=== PATIENT | female | born 1950 | race American Indian/Alaskan Native ===

== ENCOUNTER 2018-12-30 09:57 | Outpatient (CLI) | payer OTHER ==
--- NOTE | 2018-12-30 11:43 | Mammography Report ---
BILATERAL DIGITAL DIAGNOSTIC MAMMOGRAM WITH CAD -- 12/30/2018 RIGHT LIMITED BREAST ULTRASOUND INDICATION: Breast cancer survivor status post left partial mastectomy, radiation and chemotherapy. P alpable lumps in the right breast. UNSPECIFIED LUMP IN THE RIGHT BREAST, UNSPECIFIED QUADRANT TECHNIQUE: Digital bilateral mammographic imaging was performed. Magnification views were obtained. Limited ultrasound was performed. This examination was interpreted with the benefit of Computer-Aided Detection (CAD) analysis. COMPARISON: 12/08/2015. No recent imaging is available for comparison. However, she has had a more re cent mammogram at [facility]. FINDINGS: Breast Density: The breasts are heterogeneously dense, which may obscure small masses. MAMMOGRAPHIC FINDINGS: An irregular mass in the right upper outer quadrant with highly suspicious ana cifications measures 2.8 x 2.2 x 2.6 cm. It correlates with a palpable lump. A pacemaker obscures a p ortion of the upper right breast. There is suggestion of at least one enlarged lymph node in the righ t axilla. There is no evidence of dominant mass, suspicious calcifications or architectural distortio n in the left breast. ULTRASOUND FINDINGS: Targeted ultrasound evaluation was performed of the area of interest. Ultrasou nd of the upper outer right breast demonstrated an irregular solid heterogeneous hypoechoic mass at 1 0:00 8 cm from the nipple. It contains calcifications and measures 1.9 x 2.0 x 1.6 cm. The mass corre lates with the mammographic mass. Ultrasound of the right axilla demonstrated a grossly abnormal lymp h node with no central fat measuring 2.8 x 2.2 x 1.7 cm. IMPRESSION: 1. A highly suspicious 2 cm right breast mass at 10:00 8 cm from the nipple and a highly suspicious 2 .8 cm right axillary lymph node. Recommend ultrasound-guided needle biopsies of the mass and the lymp h node. 2. Negative left breast. I discussed the findings and the recommendation for needle biopsies with the patient at the time of t he exam. Follow up recommendation: Biopsy BI-RADS Category 5: Highly Suggestive of Malignancy. A "normal" or negative report should not discourage follow up or biopsy of a clinically significant f inding. A written summary of these findings will be mailed to the patient. The patient will be entered into a mammography reporting system which will generate a reminder letter for the patient's next appointmen t at the appropriate interval. According to the [employer], yearly mammograms are recommended starting at age 40 and continuing as long as a woman is in good health. Breast MRI is recommended for women with an selina roximately 20-25% or greater lifetime risk of breast cancer, including women with a strong family his tory of breast or ovarian cancer and women who have been treated for Hodgkin's disease. Signer Name: Constantine Pugh MD Signed: 12/30/2018 11:38 AM Workstation Name: [id number]
== END 2018-12-30 09:58 | disposition home or self-care (01) ==
LOC: MAMMO 09:57
PROVIDERS: ATTEND Family Medicine
DX: N63.11 Unspecified lump in the right breast, upper outer quadrant (principal); Z85.3 Personal history of malignant neoplasm of breast
CPT/HCPCS: 77066

== ENCOUNTER 2019-01-06 08:50 | Outpatient (CLI) | payer OTHER | END 2019-01-06 08:51 | disposition home or self-care (01) | LOC: LABHHL 08:50 | PROVIDERS: ATTEND Surgery | DX: N63.10 Unspecified lump in the right breast, unspecified quadrant (principal); D36.0 Benign neoplasm of lymph nodes | CPT/HCPCS: 88305; 88341; 88342 ==

== ENCOUNTER 2019-02-02 10:01 | Outpatient (CLI) | payer OTHER, MEDICARE ==
--- NOTE | 2019-02-02 11:31 | Ultrasound Report ---
BILATERAL BREAST ULTRASOUND HISTORY: Newly diagnosed right breast cancer and history of left breast cancer status post partial ma stectomy. These studies are being done to assess the extent of disease since she has a pacemaker and cannot have an MRI. COMPARISON: 12/30/2018 bilateral mammogram and limited right breast ultrasound. FINDINGS: Ultrasound examination of the right breast including all 4 quadrants and the retroareolar area was pe rformed. A palpable irregular heterogeneous solid hypoechoic mass at 10:00 7 cm from the nipple corre lates with the newly diagnosed cancer. It measures 2.5 x 1.8 x 1.7 cm. No other mass or suspicious sh adowing of the right breast. However, 2 highly suspicious right axillary lymph nodes have no central fat and measures 3.3 x 1.9 x 3.7 cm and 1.3 x 0.9 x 1.7 cm. Ultrasound examination of the left breast including all 4 quadrants and the retroareolar area was per formed. No mass or suspicious shadowing of the left breast. Benign shadowing at a lumpectomy scar at 10:00 7 cm from the nipple. Ultrasound of the left axilla demonstrated no suspicious lymph nodes. IMPRESSION: 1. A 2.5 x 1.8 x 1.7 cm known right breast cancer and no additional suspicious lesion of either breas t. 2. 2 highly suspicious right axillary lymph nodes. 3. No suspicious left axillary lymph nodes. BIRADS 6: Known biopsy proven malignancy. Signer Name: Constantine Pugh MD Signed: 02/02/2019 11:26 AM Workstation Name: [id number]
== END 2019-02-02 10:02 | disposition home or self-care (01) ==
LOC: SPVWC 10:01
PROVIDERS: ATTEND Surgery
DX: C50.411 Malignant neoplasm of upper-outer quadrant of right female breast (principal)

== ENCOUNTER 2019-02-10 05:50 | Day surgery (SDC) | payer OTHER, MEDICARE ==
--- NOTE | 2019-02-09 13:00 | Short Stay Summary ---
Short Stay Documentation Date of service: 02/10/19 - History H&P: obtained from office - Allergies and Medications Current Medications: Allergies No Known Allergies Allergy (Verified 02/09/19 10:12) Home Medications Medication Instructions Recorded Confirmed Last Taken Type Aspirin [Aspirin BABY CHEW TAB] 80 mg PO DAILY 02/09/19 02/09/19 Unknown History Bumetanide 1 mg PO DAILY 02/09/19 02/09/19 Unknown History ISOSORBIDE MONOnitrate [Monoket] 20 mg PO BID 02/09/19 02/09/19 Unknown History Ivabradine HCl [Corlanor] 5 mg PO BID 02/09/19 02/09/19 Unknown History Mag Oxide/D3/Turmeric Rt Xt 1 each PO DAILY 02/09/19 02/09/19 Unknown History [Magnesium-Vit D3-Turmeric Tab] Pantoprazole [Protonix] 40 mg PO QDAY 02/09/19 02/09/19 Unknown History Primidone [Mysoline] 50 mg PO BID 02/09/19 02/09/19 Unknown History Vedolizumab (Nf) [Entyvio (Nf)] 300 mg IV Q8W 02/09/19 02/09/19 Unknown History allopurinoL [Zyloprim] 100 mg PO QDAY 02/09/19 02/09/19 Unknown History calcitrioL [Rocaltrol] 0.25 mcg PO DAILY 02/09/19 02/09/19 Unknown History carvediloL [Coreg] 25 mg PO BID 02/09/19 02/09/19 Unknown History hydrALAZINE [Apresoline] 25 mg PO TID 02/09/19 02/09/19 Unknown History Active Medications Acetaminophen (Tylenol) 1,000 mg PO PREOP MELANIE Stop: 02/10/19 23:00 Celecoxib (Celebrex) 200 mg PO PREOP NR Stop: 02/10/19 23:00 Gabapentin (Gabapentin) 300 mg PO PREOP NR Stop: 02/10/19 23:01 Cefazolin Sodium (Ancef/Sterile Water 2 Gm/20 Ml) 2 gm in 20 mls @ 80 mls/hr IV PREOP NR; Protocol Stop: 02/10/19 23:01 Lactated Ringer's (Lactated Ringers) 1,000 mls @ 100 mls/hr IV DIRECT MELANIE Midazolam HCl (Versed) 2 mg IV PREOP NR Stop: 02/10/19 16:00 - Physical exam General appearance: no acute distress Integumentary: no rash, no growths, no abnormal pigmentation HEENT: Atraumatic Lungs: Normal air movement - Brief post op/procedure progress note Date of procedure: 02/10/19 (dictation:[id number]) Pre-op diagnosis: right breast cancer Post-op diagnosis: same Procedure: Us guided port placement IVF 300cc EBL min Anesthesia: MAC Findings: possible clot in left IJ Surgeon: DULCE BROWN Estimated blood loss: minimal Pathology: none Condition: stable - Disposition Condition at discharge: Stable Disposition: DC-01 TO HOME OR SELFCARE Short Stay Discharge Plan Activity: no restrictions Diet: regular Wound: open to air, keep clean and dry Special Instructions: no heavy lifting Additional Instructions: Post Operative Instructions Activity: no heavy lifting for next 1 week. May shower tomorrow. Pat dry the wound or wounds. Keep incision sites clean and dry After surgery, start with a light diet. Consider having a liquid diet first. If you do well, you can advance to a regular diet as you feel comfortable. Apply an ice pack to the wound or wounds for 10-20 minutes at a time. Do this at least 4-5 times a day. You can do it more if he would like. Alternate the use of ibuprofen and Tylenol for the first 2 days. I want you to take these on a scheduled basis. Take 600 mg of ibuprofen every 6 hours. Take 500 mg of Tylenol every 6 hours. You should alternate these 2 medicines. In other words, beginning with the ibuprofen. After 3 hours, take the Tylenol. Keep alternating the 2 drugs every 3 hours. Do this on a scheduled basis for the first 2 days. After that, you can take them as needed. It is very important that you use the prescription pain medicine only for very severe pain. Do not take the prescription medicine before you try using the ibuprofen and Tylenol. We will call you in a couple of days to see how youre doing. If you have any questions or concerns, always feel free to call the clinic at any time. Follow up with: DANE ACEVES MD [Primary Care Provider] - 7 Days Forms: Outpatient Surgery DC Inst. Prescriptions: HYDROcodone/APAP 5-325 [Dixon 5-325 mg TAB] 1 each PO Q6HR PRN #6 tablet PRN Reason: Pain , Severe (7-10)
[~2019-02-10 05:50] MED LIST: LACTATED RINGERS 1,000 ML IV SCH
[2019-02-10] MEDS ORDERED: ceFAZolin/Water 2 GM/20 ML 2 GM/20 ML SYRINGE IV NR (06:00)
[2019-02-10] MEDS ORDERED: MIDAZOLAM 2 MG/2 ML INJ IV NR (06:00)
[2019-02-10] MEDS ORDERED: GABAPENTIN 300 MG CAP PO NR (06:00)
[2019-02-10] MEDS ORDERED: CELECOXIB 200 MG CAP PO NR (06:00)
[2019-02-10] MEDS ORDERED: ACETAMINOPHEN 500 MG TAB PO SCH (06:00)
[2019-02-10] MEDS ORDERED: BACTERIOSTATIC SODIUM CHLORIDE 0.9% 30 ML VIAL INFILTRATI ONE (06:31)
[2019-02-10] MEDS ORDERED: fentaNYL 100 MCG/2 ML INJ IV PRN (07:11)
[2019-02-10] MEDS ORDERED: ONDANSETRON 4 MG/2 ML INJ IV PRN (07:11)
[2019-02-10] MEDS ORDERED: carvediloL 25 MG TAB PO NR (07:12)
--- NOTE | 2019-02-10 07:13 | Anesthesia Day of Surgery ---
Anesthesia Day of Surgery - Day of Surgery Patient Examined: Yes Patient H&P Reviewed: Yes Patient is NPO: Yes Beta Blockers: Yes
[2019-02-10] MEDS ORDERED: LIDOCAINE (1%) 10 MG/1 ML VIAL 20 ML MDV ONE (07:15)
[2019-02-10] MEDS ORDERED: HEPARIN 10,000 UNITS/10 ML VIAL ONE (07:15)
[2019-02-10] MEDS ORDERED: BUPIVACAINE-EPINEPHRINE/PF 0.5%-1:200,000 (30 ML) VIAL INFILTRATI ONE ×2 (07:15→08:12)
[2019-02-10] MEDS ORDERED: SODIUM CHLORIDE 0.9% 250ML 250 ML ONE (07:15)
--- NOTE | 2019-02-10 07:17 | Anesthesia Consultation ---
Anesthesia Consult and Med Hx Date of service: 02/10/19 - Airway Anesthetic Teeth Evaluation: Good ROM Head & Neck: Adequate Mental/Hyoid Distance: Adequate Mallampati Class: Class II Intubation Access Assessment: Good - Pre-Operative Health Status ASA Pre-Surgery Classification: ASA3 Proposed Anesthetic Plan: General - Pulmonary Hx Smoking: No Hx Sleep Apnea: No (RASHEL PRE SCREEN LOW RISK) - Cardiovascular System Hx Hypertension: Yes (CHF EF 35-40% per pt. 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
[2019-02-10] MEDS ORDERED: LIDOCAINE MPF (2%) 20 MG/1 ML VIAL 5 ML ONE (07:40)
[2019-02-10] MEDS ORDERED: fentaNYL 100 MCG/2 ML INJ ONE (07:41)
[2019-02-10] MEDS ORDERED: PROPOFOL 200 MG/20 ML VIAL IV ONE ×2 (07:41→08:12)
[2019-02-10] MEDS ORDERED: KETAMINE/STERILE WATER 50 MG/ML SYRINGE ONE (08:01)
[2019-02-10] MEDS ORDERED: HEPARIN 10,000 UNITS/10 ML VIAL IV ONE (08:11)
[2019-02-10] MEDS ORDERED: SODIUM CHLORIDE 0.9% 250 ML IVPB IV ONE (08:12)
[2019-02-10] MEDS ORDERED: LIDOCAINE (1%) 10 MG/1 ML VIAL 20 ML MDV INFILTRATI ONE (08:13)
--- NOTE | 2019-02-10 09:01 | Fluoroscopy Report ---
Fluoroscopy Central venous device placement HISTORY: Uydjvp-x-[id number] insertion. Right breast cancer FINDINGS: 22 seconds of fluoroscopy time was provided by radiology during left subclavian Infuse-a-Po rt insertion. 2 AP images of the chest are presented. The distal tip of the Dslzqt-r-Ghpo terminates in the superior right atrium. Single lead pacemaker terminates in the right ventricle. Borderline to mild cardiomegaly is evident. The lungs are clear. No pneumothorax is appreciated. Multiple surgical clips are noted in the left axilla suggesting lymph node dissection. Signer Name: Real Chavez Jr, MD Signed: 02/10/2019 8:57 AM Workstation Name: [id number]
--- NOTE | 2019-02-10 09:31 | Post Anesthesia Evaluation ---
- Post Anesthesia Evaluation Patient Participated: Yes Airway Patent: Yes Stable Respiratory Function: Yes Nausea/Vomiting: No Temp > 96.8F: Yes Pain Manageable: Yes Adequeate Hydration: Yes Anesthesia Complications: No Block Receding Appropriately: Not Applicable Patient on Ventilator: No
[2019-02-10 09:38] VITALS: BP 131/66
--- NOTE | 2019-02-10 10:19 | Operative Report ---
PREOPERATIVE DIAGNOSIS: Right breast cancer. POSTOPERATIVE DIAGNOSIS: Right breast cancer. PROCEDURES: 1. Insertion of tunneled centrally inserted central venous access device with subcutaneous port. 2. Ultrasound guidance for vascular access. ATTENDING PHYSICIAN: Wally Wick MD ANESTHESIA: Local MAC. ESTIMATED BLOOD LOSS: Minimal. FLUIDS: 300 mL. FINDINGS: Possible nonobstructing clot in the left internal jugular vein. Normal chest x-ray post-procedure. IMPLANTS: Smart port. COMPLICATIONS: None. DISPOSITION: Stable, transferred to Recovery Room. INDICATIONS: This is a 68-year-old female who presents for port placement after recent diagnosis of right breast cancer. The patient is assessed to be an adequate candidate. Procedure, risks, benefits were explained to the patient. Risks include but were not limited to infection, bleeding, pain, injury to surrounding structures, possible need for further procedures in the future. The patient understood and consented. OPERATIVE NOTE: The patient was brought to the operating room and placed on the table in supine position. Ultrasound examination was done. I was concerned there could be a nonobstructing clot in the left internal jugular vein. The left subclavian vein seemed to be patent and reasonable target. The right side, I did not want to approach as she had her AICD on that side. Sterile prep and drape was performed. Sedation was established. The patient was placed in Trendelenburg position. SCDs were in place. Antibiotics had been given. Time-out was called. I began by again re-identifying the left subclavian vein and its margins. Lidocaine 1% with epinephrine and 0.5% Marcaine were used to anesthetize the planned insertion site. Under ultrasound guidance, I watched the tissue above the vein fill up with local anesthetic. A subsequent small incision was made. Introducer needle was inserted. Under ultrasound guidance, I inserted the needle into the subclavian vein. I had good aspiration of venous blood. Guidewire was passed. However, compared to how far we normally pass it, I stopped short. Fluoroscopy was brought in. I did not want to take a chance in getting the wire tangled up in the AICD leads. Therefore, under fluoroscopic guidance, I advanced the wire so that it was at least in the superior vena cava. Thereafter, we secured the wire. Planned pocket site was anesthetized. Oblique incision was made along the lines of skin tension. Subcutaneous pocket was created and then catheter was passed up from the pocket towards the guidewire. Over the guidewire, the dilator and sheath were inserted. The dilator and guidewire was slowly retracted under fluoroscopic guidance, making sure again that we did not get tangled up with the cardiac leads. Once we removed it safely, catheter was inserted, length was adjusted. We trimmed the catheter about 30 cm, connected it to the port. Please note that we had the catheter clamped to minimize any air aspiration. The port was inserted into the pocket. We flushed it. We had easy aspiration and flushing. We adjusted the position and then checked the position with fluoroscopy, appeared to be adequate. The tip was slightly lower than our target, but still acceptable. I then flushed it, then I locked it. I aspirated and injected locking solution without any difficulty. We made sure we had good hemostasis. Additional local was injected. A 3-0 Vicryl was used to close the deep tissue with interrupted stitches. Please note the patient's position had been changed at this point from Trendelenburg to reverse Trendelenburg. Skin sites were closed with 4-0 Monocryl subcuticular stitches. Skin was cleaned and dried. Dermabond was placed. The patient tolerated the procedure well. There were no complications. All counts were correct at the end of the case. Chest x-ray showed no evidence of complications. Catheter appeared to be in a good position. Please note that I spoke with the significant other at the end of the case. I explained to him my concerns about a possible nonobstructing clot in the internal jugular vein. Referred that they follow up with their primary care physician to determine if further workup and treatment is necessary. He was appreciative for this. JOB# [id number] ADE/ERNIE
== END 2019-02-10 05:51 | disposition home or self-care (01) ==
LOC: OR 05:50
PROVIDERS: ATTEND Surgery
DX: C50.911 Malignant neoplasm of unspecified site of right female breast (principal); I25.2 Old myocardial infarction; I11.0 Hypertensive heart disease with heart failure; I50.9 Heart failure, unspecified; K21.9 Gastro-esophageal reflux disease without esophagitis; F32.9 Major depressive disorder, single episode, unspecified; F41.9 Anxiety disorder, unspecified; Z72.89 Other problems related to lifestyle; Z79.899 Other long term (current) drug therapy; Z95.0 Presence of cardiac pacemaker; Z90.49 Acquired absence of other specified parts of digestive tract; Z98.890 Other specified postprocedural states; Z86.2 Personal history of diseases of the blood and blood-forming organs and certain disorders involving the immune mechanism
CPT/HCPCS: 36415; 36561; 77001; 84132; C1788; J0690; J1644; J2250; J2704; J3010; J7050; J7120

== ENCOUNTER 2019-12-24 11:49 | Outpatient (CLI) | payer OTHER, MEDICARE ==
--- NOTE | 2019-12-24 15:26 | Vascular Lab Report ---
DUPLEX DOPPLER UPPER EXTREMITY VENOUS, RIGHT INDICATION / CLINICAL INFORMATION: Right upper extremity edema and tenderness. History of breast cancer with lymphedema. TECHNIQUE: Duplex doppler imaging was performed through the veins of the right upper extremity using venous comp ression and other maneuvers. COMPARISON: None available. FINDINGS: RIGHT INTERNAL JUGULAR VEIN: Negative. RIGHT SUBCLAVIAN VEIN: Negative. RIGHT AXILLARY VEIN: Negative. RIGHT BRACHIAL VEIN: Negative. RIGHT FOREARM VEINS: Negative. RIGHT BASILIC VEIN (SUPERFICIAL): Negative. ADDITIONAL FINDINGS: No abnormal mass or fluid collection is seen. IMPRESSION: No sonographic evidence for DVT. Signer Name: Lincoln Perry MD Signed: 12/24/2019 3:21 PM Workstation Name: [id number]
== END 2019-12-24 11:50 | disposition home or self-care (01) ==
LOC: US 11:49
PROVIDERS: ATTEND Surgery
DX: R60.0 Localized edema (principal)

== ENCOUNTER 2020-01-19 10:11 | Outpatient (CLI) | payer OTHER, MEDICARE ==
--- NOTE | 2020-01-19 10:57 | Mammography Report ---
DIGITAL DIAGNOSTIC MAMMOGRAM WITH CAD , 01/19/2020 CLINICAL INFORMATION / INDICATION: The patient has a personal history of right breast cancer treated with lumpectomy. She reports no new breast symptoms. TECHNIQUE: Digital bilateral mammographic imaging was performed. This examination was interpreted with the benefit of Computer-aided Detection analysis. COMPARISON: Diagnostic mammogram, 01/07/2019. Screening mammogram, 12/08/2015, 11/12/2014 FINDINGS: Breast Density: The breasts are heterogeneously dense, which may obscure small masses. No dominant mass, suspicious calcifications or architectural distortion in either breast. Postsurgical changes are noted in both breasts. IMPRESSION: No mammographic evidence of malignancy. New post lumpectomy changes of the right breast. Follow up recommendation: Routine yearly BI-RADS Category 2: Benign. A "normal" or negative report should not discourage follow up or biopsy of a clinically significant f inding. A written summary of these findings will be mailed to the patient. The patient will be entered into a mammography reporting system which will generate a reminder letter for the patient's next appointmen t at the appropriate interval. According to the [employer], yearly mammograms are recommended starting at age 40 and continuing as long as a woman is in good health. Breast MRI is recommended for women with an selina roximately 20-25% or greater lifetime risk of breast cancer, including women with a strong family his tory of breast or ovarian cancer and women who have been treated for Hodgkin's disease. Signer Name: Shalini Duke MD Signed: 01/19/2020 10:53 AM Workstation Name: [email or web address]
== END 2020-01-19 10:12 | disposition home or self-care (01) ==
LOC: SPVWC 10:11
PROVIDERS: ATTEND Surgery
DX: C50.411 Malignant neoplasm of upper-outer quadrant of right female breast (principal); Z90.11 Acquired absence of right breast and nipple
CPT/HCPCS: 77066

== ENCOUNTER 2020-07-19 10:18 | Outpatient (CLI) | payer OTHER, MEDICARE ==
--- NOTE | 2020-07-19 11:23 | Mammography Report ---
DIGITAL DIAGNOSTIC MAMMOGRAM WITH CAD , 07/19/2020 CLINICAL INFORMATION / INDICATION: PERSONAL HX OF MALIGNANT NEOPLASM OF right BREAST TECHNIQUE: Digital right mammographic imaging was performed. This examination was interpreted with the benefit of Computer-aided Detection analysis. COMPARISON: 01/19/2020 FINDINGS: Breast Density: The breasts are heterogeneously dense, which may obscure small masses. No dominant mass, suspicious calcifications or architectural distortion in the right breast. Postlump ectomy and radiation change are again noted. There are a few benign calcifications scattered within t he right breast. Overall no interval change from the most recent postsurgical mammogram, 01/19/2020 IMPRESSION: No mammographic evidence of malignancy. Follow up recommendation: Back to schedule. BI-RADS Category 2: Benign. A "normal" or negative report should not discourage follow up or biopsy of a clinically significant f inding. A written summary of these findings will be mailed to the patient. The patient will be entered into a mammography reporting system which will generate a reminder letter for the patient's next appointmen t at the appropriate interval. According to the [employer], yearly mammograms are recommended starting at age 40 and continuing as long as a woman is in good health. Breast MRI is recommended for women with an selina roximately 20-25% or greater lifetime risk of breast cancer, including women with a strong family his tory of breast or ovarian cancer and women who have been treated for Hodgkin's disease. Signer Name: Moriah Stiles MD Signed: 07/19/2020 11:19 AM Workstation Name: [id number]
== END 2020-07-19 10:19 | disposition home or self-care (01) ==
LOC: SPVWC 10:18
PROVIDERS: ATTEND Surgery
DX: R92.1 Mammographic calcification found on diagnostic imaging of breast (principal); Z85.3 Personal history of malignant neoplasm of breast